=== PATIENT | female | born 1955 ===

== ENCOUNTER 2017-04-17 17:43 | Emergency (ER) | payer SELFPAY ==
[2017-04-17 17:50] VITALS: BMI 27.2
[2017-04-17 17:53] VITALS: BP 180/83; PULSE 73; RESP 18; TEMP 97.8; O2SAT 98
--- NOTE | 2017-04-17 20:25 | C.PDOC ---
History Of Present Illness 61 y/o female presents to the ED for evaluation of right ear pain which began 3 days ago. Patient notes pain radiates to the right side of her face and is associated with a right-sided headache. Patient denies fever, chills, ear discharge, or decreased hearing. Time Seen by Provider: 04/17/17 19:31 Chief Complaint (Nursing): ENT Problem History Per: Patient History/Exam Limitations: no limitations Onset/Duration Of Symptoms: Days (3) Current Symptoms Are (Timing): Still Present Quality: "Pain" Additional History Per: Patient Past Medical History Reviewed: Historical Data, Nursing Documentation, Vital Signs Vital Signs: Last Vital Signs Temp 97.8 F 04/17/17 17:49 Pulse 73 04/17/17 17:49 Resp 18 04/17/17 17:49 BP 180/83 H 04/17/17 17:49 Pulse Ox 98 04/18/17 05:36 - Medical History PMH: HTN Surgical History: No Surg Hx Family History: States: Unknown Family Hx - Social History Hx Alcohol Use: No Hx Substance Use: No - Immunization History Hx Tetanus Toxoid Vaccination: No Hx Influenza Vaccination: No Hx Pneumococcal Vaccination: No Review Of Systems Constitutional: Negative for: Fever, Chills ENT: Positive for: Ear Pain (right). Negative for: Ear Discharge Physical Exam - Physical Exam Appears: Non-toxic, No Acute Distress Skin: Normal Color, Warm, Dry Head: Atraumatic, Normacephalic Eye(s): bilateral: Normal Inspection Ear(s): Right: Other (no tragus tenderness, effusion, erythema ), Bilateral: Normal Nose: Normal, No Discharge Oral Mucosa: Moist Throat: Normal, No Erythema, No Exudate Neck: Supple Chest: Symmetrical, No Deformity, No Tenderness Cardiovascular: Rhythm Regular, No Murmur Respiratory: Normal Breath Sounds, No Rales, No Rhonchi, No Wheezing Extremity: Normal ROM, Capillary Refill (less than 2 seconds ) Neurological/Psych: Oriented x3, Normal Speech, Normal Cognition Gait: Steady ED Course And Treatment O2 Sat by Pulse Oximetry: 98 (on RA) Pulse Ox Interpretation: Normal Progress Note: Motrin PO administered prior to physical exam. . On reassessment, patient is resting comfortably, showing no signs of distress and is stable for discharge. Patient is advised to follow up with her PMD within 1- 2 days for further evalaution and/or return to the ED if symptoms persist or worsen. Reassessment Condition: Improved Disposition Counseled Patient/Family Regarding: Diagnosis, Need For Followup, Rx Given - Disposition Referrals: Muriel Egan MD [Medical Doctor] - Disposition: HOME/ ROUTINE Disposition Time: 20:21 Condition: STABLE Additional Instructions: Take meds as directed Follow up with PMD Return to ER if worse Prescriptions: Acetaminophen 650 mg PO Q4 #30 capsule Cetirizine HCl [Zyrtec] 10 mg PO DAILY #14 capsule Forms: [employer] (Swedish), General Discharge Instructions Print Language: NIGERIEN - Clinical Impression Clinical Impression: Otalgia of right ear - PA / [employer] / Resident Statement MD/DO has reviewed & agrees with the documentation as recorded. - Scribe Statement The provider has reviewed the documentation as recorded by the Scribe (Amna Carter) All medical record entries made by the Scribe were at my direction and personally dictated by me. I have reviewed the chart and agree that the record accurately reflects my personal performance of the history, physical exam, medical decision making, and the department course for this patient. I have also personally directed, reviewed, and agree with the discharge instructions and disposition.
== END 2017-04-17 20:36 | disposition home or self-care (01) ==
LOC: C.ER 17:43
DX: H92.01 Otalgia, right ear (principal)